=== PATIENT | female | born 1980 | race Hispanic/Latino ===

== ENCOUNTER → 2017-01-04 | Day surgery (SDC) | payer OTHER ==
[~2017-01-04] VITALS: Ht 165.1 cm; Wt 87.0 kg
[~2017-01-04] MED LIST: 0.9% Sodium Chloride 1,000 ML IV PRN; ACET325T51 PO; LEVO150T5 PO; MELO-259 PO; Sodium Chloride LOK Flush 10 mL Syringe IV PRN; fentaNYL-PF 50 mCg/mL 2 mL Inj IVPUSH PRN
[2017-01-04 11:36] VITALS: BP 102/63; PULSE 67; RESP 14; O2SAT 98
[2017-01-04 12:50] VITALS: BP 101/67; PULSE 64; RESP 14; O2SAT 99
[2017-01-04 12:59] VITALS: BP 101/68; PULSE 56; RESP 16; O2SAT 99
[2017-01-04 13:08] VITALS: BP 101/68; PULSE 60; RESP 16; O2SAT 96
[2017-01-04 13:09] VITALS: BP 87/58; PULSE 58; RESP 16; O2SAT 100
--- NOTE | 2017-01-04 13:55 | ENDO ---
[address] [address] ENDOSCOPY PROCEDURE PATIENT: SANJANA DIMAS : 1980 MR#: [id number] ADMIT: 01/04/2017 JOB ID: [id number] C DATE: 01/04/2017 PRIMARY PROVIDER: JETHRO Sood PROCEDURES: Esophagogastroduodenoscopy with biopsies and a colonoscopy. INDICATIONS: A 36-year-old female with intermittent nausea and vomiting. She has had hematemesis. She also has a history of constipation and red blood per rectum. EGD and colonoscopy are, therefore, pursued. EQUIPMENT: GIF H 180 J and a PCF H 180 AL. SEDATION: 1. 6 mg Versed. 2. 125 mcg fentanyl. COMPLICATIONS: None identified. PROCEDURAL INFORMATION: After the risks and benefits were explained, written and verbal informed consent was obtained. The patient was brought into the endoscopy suite and placed into the left lateral decubitus position. Sedation was achieved as above. The scope introduced into the mouth through the bite block and advanced to the second portion of the duodenum. The scope was slowly withdrawn to carefully examine the mucosa for any defects or lesions. Retroflexed views were accomplished in the stomach. The stomach was decompressed. The scope removed from the patient who tolerated the procedure well. The patient was then turned around. A digital rectal examination accomplished. The patient had a tense anal sphincter mechanism but no mass lesions. No fissures appreciated. The scope was introduced into the rectum and advanced to the cecum as identified by the appendiceal orifice and ileocecal valve. The terminal ileum was briefly accessed. The scope then slowly withdrawn to carefully examine the mucosa for any defects or lesions. Multiple direct views were made through the dentate line for exclusion of pathology. The colon was decompressed. The scope removed from the patient who tolerated the procedure well. FINDINGS: 1. Duodenum: This appeared visually normal from the bulb through to the second portion (celiac antibodies were recently noted to be negative as were the other baseline labs). 2. Stomach: Minimal nonspecific gastropathy was seen throughout. Random biopsy was taken for exclusion of Helicobacter or other pathology. No ulcers. No mass lesions. No outlet obstruction. Retroflexed views of the LES were relatively unremarkable. 3. Esophagus: The squamocolumnar junction correlated with the top of the gastric folds. The GEJ was at about 38 cm from the incisors. No acute erosive changes. No strictures. No mass lesions. 4. Terminal ileum: This appeared visually normal. 5. Colon: Visually normal with overall excellent prep. No signs of colitis or proctitis. No polyps or mass lesions. ENDOSCOPIC DIAGNOSES: 1. Mild gastropathy. 2. Subtle sliding hiatal hernia. 3. Visually unremarkable colonoscopy. RECOMMENDATIONS: 1. Await histopathology. 2. Two tablespoons of ground flaxseed fiber mixed with 8 ounces of organic pear juice daily. 3. Followup with [facility] in 3-4 weeks.
--- NOTE | 2017-01-06 16:24 | PATH ---
SURGICAL PATHOLOGY Attending Physician:Fahad Arredondo CASE STATUS: Signed Out PATIENT NAME: SANJANA DIMAS PID: [id number] : 1980 DATE COLLECTED:01/04/2017 21:37 SPECIMEN: Gastric, Biopsy CLINICAL HISTORY: 1). GASTRIC BIOPSY RULE OUT H PYLORI FINAL DIAGNOSIS: Stomach, Biopsy: Gastric body mucosa with no diagnostic abnormality. Helicobacter organisms not identified. Negative for intestinal metaplasia, dysplasia or malignancy. ICD10: R11 GROSS DESCRIPTION: The specimen is received in one formalin filled container labeled with the patient's name, sublabeled "gastric" and consists of a 0.2 x 0.2 x 0.2 CM portion of tissue which is entirely submitted in one cassette. 01/04/2017DC ICD-9 CODES: CPT CODES: 1: 84292 Electronically Signed Out Giovanni La MD, Ph.D. [facility]ology [facility] [address], [place] [address] Technical component performed at [facility], [address] [place] [address] Ave[address], [place], [address]
== END | disposition home or self-care (01) ==
LOC: END 00:15
PROVIDERS: ATTEND Internal Medicine Gastroenterology
DX: K62.5 Hemorrhage of anus and rectum (principal); K59.00 Constipation, unspecified; K92.0 Hematemesis; K31.9 Disease of stomach and duodenum, unspecified; K44.9 Diaphragmatic hernia without obstruction or gangrene
CPT/HCPCS: 43239; 45378; 99153; G0500; J2250; J3010; J7030